=== PATIENT | male | born 1955 | race Caucasian/White ===

== ENCOUNTER → 2017-05-17 | Outpatient (CLI) | payer OTHER | LOC: BMCIMAGING 14:34 | PROVIDERS: ATTEND Family Medicine | DX: R07.81 Pleurodynia (principal); W18.39XA Other fall on same level, initial encounter; Y93.H9 Activity, other involving exterior property and land maintenance, building and construction ==

== ENCOUNTER → 2018-07-12 | Outpatient (CLI) | payer OTHER, MEDICARE | LOC: BMCIMAGING 10:59 | PROVIDERS: ATTEND Emergency Medicine | DX: R05 Cough (principal) ==